=== PATIENT | male | born 1975 | race Caucasian/White ===

== ENCOUNTER 2016-11-03 18:38 | Emergency (ER) | payer SELFPAY ==
[2016-11-03] MEDS ORDERED: IBUPROFEN 800 MG TABLET PO ONE (19:58)
--- NOTE | 2016-11-03 19:58 | ER Document Report ---
ED Medical Screen (RME) - General Stated Complaint: SHOULDER PAIN Notes: left shoulder over the course of the week has a catching feeling. No h/o trauma. 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 A comprehensive ED assessment and evaluation of the patient, analysis of test results and completion of the medical decision making process will be conducted by additional ED providers.
--- NOTE | 2016-11-03 21:25 | ER Document Report ---
ED General - General Chief Complaint: Shoulder Pain Stated Complaint: SHOULDER PAIN Notes: This 41-year-old male who presents to the emergency room today stating that he has discomfort in his left shoulder and feels a clicking when he lifts it laterally as well as pain to the left posterior aspect of his neck which feels like a sharp stabbing pain occurs 10-15 times a day over the course of the last several months. TRAVEL OUTSIDE OF THE [place] IN LAST 30 DAYS: No - Related Data Allergies/Adverse Reactions: levofloxacin [From Levaquin] Allergy (Verified 11/03/16 19:59) Past Medical History - General Information source: Patient - Social History Smoking Status: Current Every Day Smoker Family History: None Patient has suicidal ideation: No Patient has homicidal ideation: No Renal/ Medical History: Denies: Hx Peritoneal Dialysis Review of Systems - Review of Systems Constitutional: No symptoms reported EENT: No symptoms reported Cardiovascular: No symptoms reported Respiratory: No symptoms reported Gastrointestinal: No symptoms reported Genitourinary: No symptoms reported Male Genitourinary: No symptoms reported Musculoskeletal: No symptoms reported Skin: No symptoms reported Hematologic/Lymphatic: No symptoms reported Neurological/Psychological: No symptoms reported Physical Exam - Vital signs Vitals: Temp Pulse Resp BP Pulse Ox 98.0 F 71 14 136/82 H 98 11/03/16 19:53 11/03/16 19:53 11/03/16 19:53 11/03/16 19:53 11/03/16 19:53 Interpretation: Normal - General General appearance: Appears well, Alert - HEENT Head: Normocephalic, Atraumatic Eyes: Normal Pupils: PERRL Neck: Normal, Other - Left lateral palpable spasm. No: Anterior cervical chain , Posterior cervical chain, Lymphadenopathy, Meningismus, Neck mass - Respiratory Respiratory status: No respiratory distress Chest status: Nontender Breath sounds: Normal Chest palpation: Normal - Cardiovascular Rhythm: Regular Heart sounds: Normal auscultation Murmur: No - Abdominal Inspection: Normal Distension: No distension Bowel sounds: Normal Tenderness: Nontender Organomegaly: No organomegaly - Back Back: Normal, Nontender - Extremities General upper extremity: Normal inspection, Nontender, Normal color, Normal ROM , Normal temperature General lower extremity: Normal inspection, Nontender, Normal color, Normal ROM , Normal temperature, Normal weight bearing. No: Baylee's sign - Neurological Neuro grossly intact: Yes Cognition: Normal Orientation: AAOx4 [place] Coma Scale Eye Opening: Spontaneous [place] Coma Scale Verbal: Oriented Kishore Coma Scale Motor: Obeys Commands Kishore Coma Scale Total: 15 Speech: Normal Motor strength normal: LUE, RUE, LLE, RLE Sensory: Normal - Psychological Associated symptoms: Normal affect, Normal mood - Skin Skin Temperature: Warm Skin Moisture: Dry Skin Color: Normal Course - Vital Signs Vital signs: Temp Pulse Resp BP Pulse Ox 98.0 F 71 14 136/82 H 98 11/03/16 19:53 11/03/16 19:53 11/03/16 19:53 11/03/16 19:53 11/03/16 19:53 - Diagnostic Test Radiology reviewed: Reports reviewed Discharge - Discharge Clinical Impression: Cervical radicular pain Shoulder pain, acute Qualifiers: Laterality: left Qualified Code(s): M25.512 - Pain in left shoulder Disposition: HOME, SELF-CARE Additional Instructions: Radiculopathy Radiculopathy is irritation of a nerve. Sometimes this is called "pinched nerve." The pain can be sharp and stabbing, constant and dull, or burning in nature. The pain can occur in any area of the chest, shoulders, or arms. Sometimes the pain is provoked by coughing or moving. Radiculopathy can be caused by physical pressure on a nerve, such as a herniated disc or swollen joint in the spine. It can also be caused by viral infections within the nerve or by nerve damage due to diabetes or blood vessel disease. Radicular pain is treated with antiinflammatory medicine. Injections may help resistant cases, if we can identify a single nerve that's causing the pain. Surgery is usually not necessary. If symptoms do not improve with time, you may need additional testing, such as an MRI or EMG (electromyogram). Return if there is local weakness or numbness, shortness of breath, increasing pain, or other new symptoms. Prescriptions: Methocarbamol [Robaxin 750 mg Tablet] 750 mg PO Q4 #40 tablet Naproxen Sodium [Naproxen Sodium ER] 500 mg PO Q12 PRN #20 tablet.sa PRN Reason: Naproxen Sodium [Naproxen Sodium ER] 500 mg PO Q12 PRN #20 tablet.sa PRN Reason:
[2016-11-03] MEDS ORDERED: METHOCARBAMOL 750 MG TABLET PO ONE (21:33)
[2016-11-03] MEDS ORDERED: METHYLPREDNISOLONE ACETATE INJ 40 MG/1 ML ML IM ONE (21:47)
[2016-11-03] MEDS ORDERED: DEXAMETHASONE SOD PHOS INJ 10 MG/1 ML VIAL IM ONE (21:47)
[2016-11-03 23:40] VITALS: BP 144/92
== END 2016-11-03 22:34 | disposition home or self-care (01) ==
LOC: ER 18:38
DX: M54.12 Radiculopathy, cervical region (principal); M25.512 Pain in left shoulder; M54.2 Cervicalgia; R25.2 Cramp and spasm; F17.200 Nicotine dependence, unspecified, uncomplicated; Z88.1 Allergy status to other antibiotic agents
CPT/HCPCS: 99284; 96372; 73030; 70450; J3490; J1020; J1100

== ENCOUNTER 2017-04-22 21:00 | Emergency (ER) | payer SELFPAY ==
[2017-04-23] MEDS ORDERED: ACETAMINOPHEN 325 MG TABLET PO ONE (00:11)
--- NOTE | 2017-04-23 00:36 | RADIOLOGY REPORT (SQ) ---
EXAM DESCRIPTION: FOOT RIGHT COMPLETE COMPLETED DATE/TIME: 04/23/2017 12:26 am REASON FOR STUDY: injury, pain COMPARISON: None. NUMBER OF VIEWS: Three views. TECHNIQUE: AP, lateral and oblique radiographic images acquired of the right foot. LIMITATIONS: None. FINDINGS: MINERALIZATION: Normal. BONES: No acute fracture or dislocation. No worrisome bone lesions. Minimal Achilles tendinous enth esophyte. JOINTS: No effusions. SOFT TISSUES: No soft tissue swelling. No foreign body. Known soft tissue injury. OTHER: No other significant finding. IMPRESSION: NO RADIOGRAPHIC EVIDENCE OF ACUTE INJURY. TECHNICAL DOCUMENTATION: JOB ID: [id number] [employer]- All Rights Reserved
[2017-04-23] MEDS ORDERED: KETOROLAC TROMETHAMINE 60 MG/2 ML SDV IM ONE (00:54)
[2017-04-23] MEDS ORDERED: OXYCODONE-ACETAMINOPHEN 5-325 MG TABLET PO ONE (00:54)
--- NOTE | 2017-04-23 00:57 | ER Document Report ---
ED Extremity Problem, Lower - General Information source: Patient TRAVEL OUTSIDE OF THE [place] IN LAST 30 DAYS: No - HPI Location: Foot - right Context: Other - stepped on a nail Recent injury: Yes Associated symptoms: Painful ambulation, Unable to bear weight Exacerbated by: Movement, Walking <ZARIA NUGENT - Last Filed: 04/23/17 02:25> <ALEXANDRA HELTON - Last Filed: 04/23/17 04:05> - General Chief Complaint: Foot Injury Stated Complaint: NAIL IN RIGHT FOOT Time Seen by Provider: 04/22/17 23:47 Notes: Patient is a 41 year old male who presents to the ED with complaints of right foot pain secondary to stepping on an old nail sticking out of a board at approximately 1630 yesterday. Patient states the nail went through his boot. Patient states he put mouthwash on it and pipe glue on it because his boot was "full of blood". Patient states he has limited ROM of his foot secondary to the pain. Patient cannot put pressure on his foot secondary to the pain. Patient had his last tetanus vaccination 7 years ago approximately and he does not have a history of diabetes. No other concerns or complaints at this time. (ZARIA NUGENT) - Related Data Allergies/Adverse Reactions: levofloxacin [From Levaquin] Allergy (Verified 04/23/17 01:12) Past Medical History - General Information source: Patient - Social History Smoking Status: Unknown if Ever Smoked Family History: None Patient has suicidal ideation: No Patient has homicidal ideation: No Endocrine Medical History: Denies: Hx Diabetes Mellitus Type 2 Renal/ Medical History: Denies: Hx Peritoneal Dialysis <ZARIA NUGENT - Last Filed: 04/23/17 02:25> Review of Systems - Review of Systems Constitutional: No symptoms reported EENT: No symptoms reported Cardiovascular: No symptoms reported Respiratory: No symptoms reported Gastrointestinal: No symptoms reported Genitourinary: No symptoms reported Male Genitourinary: No symptoms reported Musculoskeletal: See HPI, Other - right foot pain secondary to stepping on a nail Skin: No symptoms reported Hematologic/Lymphatic: No symptoms reported Neurological/Psychological: No symptoms reported <ZARIA NUGENT - Last Filed: 04/23/17 02:25> Physical Exam - General General appearance: Appears well, Alert In distress: None - HEENT Head: Normocephalic, Atraumatic Eyes: Normal Extraocular movements intact: Yes Pupils: PERRL - Respiratory Respiratory status: No respiratory distress - Cardiovascular Rhythm: Regular Pulses: Normal: Dorsalis pedis - Abdominal Inspection: Normal - Back Back: Normal - Extremities General upper extremity: Normal inspection, Normal ROM Foot: Tender - to palpation on ball of right foot and arch, Puncture wound - on ball of right foot, Other - pain with movement on toes but able to do so - Neurological Neuro grossly intact: Yes Cognition: Normal Orientation: AAOx4 Kish[place] Coma Scale Eye Opening: Spontaneous Kishore Coma Scale Verbal: Oriented [place] Coma Scale Motor: Obeys Commands [place] Coma Scale Total: 15 Speech: Normal - Psychological Associated symptoms: Normal affect, Normal mood - Skin Skin Temperature: Warm Skin Moisture: Dry Skin Color: Normal <ZARIA NUGENT - Last Filed: 04/23/17 02:25> Course <ZARIA NUGENT - Last Filed: 04/23/17 02:25> - Diagnostic Test Radiology reviewed: Reports reviewed <ALEXANDRA HELTON - Last Filed: 04/23/17 04:05> - Re-evaluation Re-evalutation: 04/23/17 04:01 Patient is a 41-year-old male who stepped on a nail that went to the bottom of his foot and through his boot. Patient is able to move his toes although it is painful. No evidence for fracture or foreign body on x-ray. Patient has allergy to Levaquin but it is diarrhea and headache. Patient was given ciprofloxacin here without any problem. Patient had wound cleaned, splinted. He will be discharged home with ciprofloxacin and pain medication. He is to follow-up with orthopedics this week. Return immediately if any increased pain , swelling, discharge, redness, or any other concerns. Isolated injury. Understands and agrees with plan. Given splint and crutches for comfort. ( ALEXANDRA HELTON) - Vital Signs Vital signs: Temp Pulse Resp BP Pulse Ox 98.0 F 53 L 16 129/81 H 98 04/23/17 02:54 04/23/17 02:54 04/23/17 02:54 04/23/17 02:54 04/23/17 02:54 Procedures - Immobilization Right Foot Pre-Proc Neuro Vasc Exam: Normal Immobilizer type: Short Leg Posterior Performed by: RN Post-Proc Neuro Vasc Exam: Normal Alignment checked and good: Yes <ALEXANDRA HELTON - Last Filed: 04/23/17 04:05> Discharge <ZARIA NUGENT - Last Filed: 04/23/17 02:25> <ALEXANDRA HELTON - Last Filed: 04/23/17 04:05> - Discharge Clinical Impression: Puncture wound Condition: Stable Disposition: HOME, SELF-CARE Instructions: Puncture Wound ([facility]) Prescriptions: Ciprofloxacin HCl [Cipro 500 mg Tablet] 500 mg PO BID #28 tablet Oxycodone HCl/Acetaminophen [Percocet 5-325 mg Tablet] 1 - 2 tab PO Q4H PRN #20 tablet PRN Reason: Forms: Return to Work Referrals: JONATHON CHAUHAN MD [ACTIVE STAFF] - Follow up tomorrow Scribe Attestation: 04/23/17 04:05 I personally performed the services described in the documentation, reviewed and edited the documentation which was dictated to the scribe in my presence, and it accurately records my words and actions. (ALEXANDRA HELTON) Scribe Documentation - Scribe Written by Jonah:: jonah Carranza, 04/23/2017, 0101 acting as scribe for :: Kristin <ZARIA NUGENT - Last Filed: 04/23/17 02:25>
[2017-04-23] MEDS ORDERED: CIPROFLOXACIN HCL 500 MG TABLET PO ONE (01:03)
[2017-04-23] MEDS ORDERED: DIPH/PERTUSS(ACELL)/TETANUS VAC/PF 0.5 ML SYR (>=10YO) IM ONE (01:33)
[2017-04-23] MEDS ORDERED: HYDROCODONE/ACETAMINOPHEN 5-325 MG 6 TAB/DSPK PO PRN (02:32)
[2017-04-23 02:55] VITALS: BP 129/81
== END 2017-04-23 03:10 | disposition home or self-care (01) ==
LOC: ER 21:00
PROC: 2W3QX1Z Immobilization of Right Lower Leg using Splint (ICD-10-PCS; principal; 2017-04-22)
DX: S91.331A Puncture wound without foreign body, right foot, initial encounter (principal); W22.09XA Striking against other stationary object, initial encounter; Z23 Encounter for immunization; E11.9 Type 2 diabetes mellitus without complications
CPT/HCPCS: 99283; 96372; 90471; 73630; 90715; 29515; J1885

== ENCOUNTER 2017-06-26 18:14 | Emergency (ER) | payer SELFPAY ==
[2017-06-26] MEDS ORDERED: NORMAL SALINE 1000 ML 1,000 ML IV ONE (18:23)
[2017-06-26] MEDS ORDERED: KETOROLAC TROMETHAMINE INJ/PF 30 MG/1 ML SDV IV ONE (18:23)
[2017-06-26] MEDS ORDERED: ONDANSETRON HCL INJ/PF 4 MG/2 ML SDV IV ONE (18:24)
--- NOTE | 2017-06-26 18:35 | ER Document Report ---
ED Medical Screen (RME) - General Chief Complaint: Abdominal Pain Stated Complaint: ABDOMEN PAIN Time Seen by Provider: 06/26/17 18:22 Mode of Arrival: Wheelchair Information source: Patient, Relative - Pt. with c/o L flank pain radiating to L inguinal area for the past 2 weeks ingtermittently. States pain got worse earlier today. TRAVEL OUTSIDE OF THE [place] IN LAST 30 DAYS: No - Related Data Allergies/Adverse Reactions: levofloxacin [From Levaquin] Allergy (Verified 06/26/17 18:18) Past Medical History Endocrine Medical History: Denies: Hx Diabetes Mellitus Type 2 Renal/ Medical History: Denies: Hx Peritoneal Dialysis Past Surgical History: Reports: Hx Genitourinary Surgery - urethral enlargement - Immunizations Hx Diphtheria, Pertussis, Tetanus Vaccination: No Physical Exam - Vital signs Vitals: Temp Pulse Resp BP Pulse Ox 98.7 F 87 20 137/89 H 95 06/26/17 18:18 06/26/17 18:18 06/26/17 18:18 06/26/17 18:18 06/26/17 18:18 Course - Vital Signs Vital signs: Temp Pulse Resp BP Pulse Ox 98.7 F 87 20 137/89 H 95 06/26/17 18:18 06/26/17 18:18 06/26/17 18:18 06/26/17 18:18 06/26/17 18:18
[2017-06-26 19:04] LABS: APPEARANCE,URINE CLEAR; BILIRUBIN,URINE NEGATIVE (NEGATIVE); GLUCOSE, URINE NEGATIVE (NEGATIVE); KETONES,URINE NEGATIVE (NEGATIVE); LEUKOCYTE ESTERASE,URINE NEGATIVE (NEGATIVE); NITRITE,URINE NEGATIVE (NEGATIVE); PROTEIN,URINE NEGATIVE (NEGATIVE); URINE SPECIFIC GRAVITY 1.021; UROBILINOGEN,URINE NEGATIVE mg/dL (<2.0)
--- NOTE | 2017-06-26 19:29 | RADIOLOGY REPORT (SQ) ---
EXAM DESCRIPTION: CT LTD RENAL STONE PROTOCOL ON COMPLETED DATE/TIME: 06/26/2017 7:07 pm REASON FOR STUDY: L flank pain COMPARISON: None. TECHNIQUE: CT scan of the abdomen and pelvis performed without intravenous or oral contrast. Images reviewed with lung, soft tissue, and bone windows. Reconstructed coronal and sagittal MPR images revi ewed. All images stored on PACS. All CT scanners at this facility use dose modulation, iterative reconstruction, and/or weight based d osing when appropriate to reduce radiation dose to as low as reasonably achievable (ALARA). [facility]: Dose Right [facility]: CareDose [facility]: Dose Right [facility]: Teradose 4D [facility]: [employer] Technologies RADIATION DOSE: Up-to-date CT equipment and radiation dose reduction techniques were employed. CTDIv ol: 17.9 mGy. DLP: 986 mGy-cm.mGy. LIMITATIONS: None. FINDINGS: LOWER CHEST: No significant findings. No nodules or infiltrates. NON-CONTRASTED LIVER, SPLEEN, ADRENALS: Evaluation limited by lack of IV contrast. No identified sign ificant masses. PANCREAS: No masses. No peripancreatic inflammatory changes. GALLBLADDER: No identified stones by CT criteria. No inflammatory changes to suggest cholecystitis. RIGHT KIDNEY AND URETER: No suspicious masses. Assessment limited by lack of IV contrast. No signif icant calcifications. No hydronephrosis or hydroureter. LEFT KIDNEY AND URETER: No suspicious masses. Assessment limited by lack of IV contrast. No signifi cant calcifications. No hydronephrosis or hydroureter. AORTA AND RETROPERITONEUM: No aneurysm. No retroperitoneal masses or adenopathy. BOWEL AND PERITONEAL CAVITY: No obvious masses or inflammatory changes. No free fluid. APPENDIX: Normal. PELVIS, BLADDER, AND ABDOMINAL WALL:3.5 cm fat containing left inguinal hernia. No free fluid. Bladde r normal. BONES: No acute findings. 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 OTHER: No other significant finding. IMPRESSION: NO ACUTE PROCESS IN THE ABDOMEN OR PELVIS. COMMENT: Quality ID # [id number]: Final reports with documentation of one or more dose reduction techniques (e.g., Automated exposure control, adjustment of the mA and/or kV according to patient size, use of iterative reconstruction technique) TECHNICAL DOCUMENTATION: JOB ID: [id number]- All Rights Reserved
[2017-06-26] MEDS ORDERED: HYDROMORPHONE HCL INJ/PF 2 MG/ML AMPULE IV ONE (19:53)
--- NOTE | 2017-06-26 20:11 | ER Document Report ---
ED GI/ - General Chief Complaint: Abdominal Pain Stated Complaint: ABDOMEN PAIN Time Seen by Provider: 06/26/17 18:22 Mode of Arrival: Wheelchair Notes: The patient is a 41-year-old male who presents with 2 weeks of intermittent left flank burning sensation with radiation into his left testicle. 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 He denies nausea, vomiting , fevers, hematuria, dysuria, chest pain, shortness of breath, saddle anesthesia , difficulty walking or rash. TRAVEL OUTSIDE OF THE [place] IN LAST 30 DAYS: No - Related Data Allergies/Adverse Reactions: levofloxacin [From Levaquin] Allergy (Verified 06/26/17 18:18) Past Medical History - General Information source: Patient, Relative - Pt. with c/o L flank pain radiating to L inguinal area for the past 2 weeks ingtermittently. States pain got worse earlier today. - Social History Smoking Status: Current Every Day Smoker Family History: None Endocrine Medical History: Denies: Hx Diabetes Mellitus Type 2 Renal/ Medical History: Denies: Hx Peritoneal Dialysis Past Surgical History: Reports: Hx Genitourinary Surgery - urethral enlargement - Immunizations Hx Diphtheria, Pertussis, Tetanus Vaccination: No Review of Systems - Review of Systems Notes: REVIEW OF SYSTEMS: CONSTITUTIONAL: -fevers, -chills EENT: -eye pain, -difficulty swallowing, -nasal congestion CARDIOVASCULAR:-chest pain, -syncope. RESPIRATORY: -cough, -SOB GASTROINTESTINAL: +LLQ abdominal pain, - nausea, -vomiting, -diarrhea GENITOURINARY: -dysuria, -hematuria, +testicular pain MUSCULOSKELETAL: +left flank pain, -neck pain SKIN: -rash or skin lesions. HEMATOLOGIC: -easy bruising or bleeding. LYMPHATIC: -swollen, enlarged glands. NEUROLOGICAL: -altered mental status or loss of consciousness, -headache, - neurologic symptoms PSYCHIATRIC: -anxiety, -depression. ALL OTHER SYSTEMS REVIEWED AND NEGATIVE. Physical Exam - Vital signs Vitals: Temp Pulse Resp BP Pulse Ox 98.7 F 87 20 137/89 H 95 06/26/17 18:18 06/26/17 18:18 06/26/17 18:18 06/26/17 18:18 06/26/17 18:18 - Notes Notes: PHYSICAL EXAMINATION: GENERAL: Well-appearing, well-nourished and in no acute distress. HEAD: Atraumatic, normocephalic. EYES: Pupils equal round and reactive to light, extraocular movements intact, sclera anicteric, conjunctiva are normal. ENT: nares patent, oropharynx clear without exudates. Moist mucous membranes. NECK: Normal range of motion, supple without lymphadenopathy LUNGS: Breath sounds clear to auscultation bilaterally and equal. No wheezes rales or rhonchi. HEART: Regular rate and rhythm without murmurs ABDOMEN: Soft, nontender, normoactive bowel sounds. No guarding, no rebound. No masses appreciated. : Reducible left inguinal hernia. Normal lie of testicles. Left testicular tenderness. No epididymal tenderness. EXTREMITIES: Normal range of motion, no pitting or edema. No cyanosis. NEUROLOGICAL: Cranial nerves grossly intact. Normal speech, normal gait. Normal sensory and motor exams. PSYCH: Normal mood, normal affect. SKIN: Warm, Dry, normal turgor, no rashes or lesions noted. Course - Re-evaluation Re-evalutation: Patient with reducible left inguinal hernia. CT and urine do not show any evidence of kidney stones or hematuria. Instructed patient about hernia management and treatment. Given strict return precautions. He will follow-up with the surgeon on Thursday. - Vital Signs Vital signs: Temp Pulse Resp BP Pulse Ox 98.7 F 87 20 137/89 H 95 06/26/17 18:18 06/26/17 18:18 06/26/17 18:18 06/26/17 18:18 06/26/17 18:18 - Diagnostic Test Radiology reviewed: Image reviewed, Reports reviewed Radiology results interpreted by me: CT A/P: NAD Scrotal US: fat-containing inguinal hernia Discharge - Discharge Clinical Impression: Inguinal hernia, left Condition: Stable Disposition: HOME, SELF-CARE Additional Instructions: Hernia You have a hernia. A hernia forms at a weak spot in the abdominal wall. Bowel slips out of the abdominal cavity into the weak spot. Hernias tend to occur in the groin (especially in males), the fold of the thigh, the naval, or at a surgical scar. Surgical repair of the defect is usually necessary. The problem tends to get worse. It's important that you follow up as recommended. For now, you should avoid straining, heavy lifting, and vigorous exercise. Complications occur if the hernia becomes tightly stuck. You should come back immediately if the area becomes increasingly painful, swollen, or discolored, or if you develop abdominal pain and vomiting. Prescriptions: Hydrocodone/Acetaminophen [[place] 5-325 mg Tablet] 1 tab PO Q6H PRN #12 tablet PRN Reason: Ondansetron [Zofran Odt 4 mg Tablet] 1 - 2 tab PO Q4H PRN #15 tab.rapdis PRN Reason: For Nausea/Vomiting Referrals: DAMIAN JOAQUIN MD [ACTIVE STAFF] - Follow up as needed
--- NOTE | 2017-06-26 21:52 | RADIOLOGY REPORT (SQ) ---
EXAM DESCRIPTION: U/S SCROTUM W/DOPPLER COMPLETED DATE/TIME: 06/26/2017 9:24 pm REASON FOR STUDY: left testicular pain COMPARISON: None. TECHNIQUE: Static and realtime rodrigues scale imaging of the scrotum and testes. Selected color Doppler and spectral images recorded to document blood flow. LIMITATIONS: None. FINDINGS: RIGHT: TESTICLE: Normal size. Normal echotexture. Normal blood flow. No mass. EPIDIDYMIS: 4 mm epididymal head cyst. HYDROCELE OR VARICOCELE: Small hydrocele. HERNIA OR EXTRA-TESTICULAR MASS: No. OTHER: No other significant finding. LEFT: TESTICLE: Normal size. Normal echotexture. Normal blood flow. No mass. EPIDIDYMIS: Normal. HYDROCELE OR VARICOCELE: Small hydrocele. HERNIA OR EXTRA-TESTICULAR MASS: Fat containing left inguinal hernia. OTHER: No other significant finding. IMPRESSION: Fat containing left inguinal hernia.. NO EVIDENCE OF TESTICULAR MASS OR TORSION. TECHNICAL DOCUMENTATION: JOB ID: [id number] [employer]- All Rights Reserved
[2017-06-26 22:42] VITALS: BP 171/111
== END 2017-06-26 22:42 | disposition home or self-care (01) ==
LOC: ER 18:14
DX: K40.90 Unilateral inguinal hernia, without obstruction or gangrene, not specified as recurrent (principal); F17.200 Nicotine dependence, unspecified, uncomplicated; Z88.1 Allergy status to other antibiotic agents
CPT/HCPCS: 99284; 96361; 96374; 96375; 81001; 76870; 93976; 76380; J1885; J1170; J2405; J7030

== ENCOUNTER 2018-06-24 00:05 | Emergency (ER) | payer SELFPAY ==
[2018-06-24] MEDS ORDERED: METOCLOPRAMIDE HCL INJ/PF 10 MG/2 ML SDV IV ONE (02:01)
[2018-06-24] MEDS ORDERED: DIPHENHYDRAMINE HCL 50 MG/ML VIAL IV ONE (02:01)
[2018-06-24] MEDS ORDERED: NORMAL SALINE 1000 ML 1,000 ML IV ONE (02:02)
[2018-06-24 02:10] LABS: ABSOLUTE BASOPHILS # (AUTO) 0.1 10^3/uL (0.0-0.2); ABSOLUTE EOSINOPHILS # (AUTO) 0.1 10^3/uL (0.0-0.6); ABSOLUTE LYMPHOCYTES (AUTO) 1.2 10^3/uL (0.5-4.7); ABSOLUTE MONOCYTES (AUTO) 0.9 10^3/uL (0.1-1.4); ABSOLUTE NEUT (AUTO) 12.9 10^3/uL (1.7-8.2); BASOPHILS % (AUTO) 0.4 % (0-2); EOSINOPHILS % (AUTO) 0.9 % (0-6); HEMOGLOBIN 16.4 g/dL (13.5-17.0); LYMPHOCYTES % (AUTO) 7.7 % (13-45); MEAN CORPUSCULAR HEMOGLOBIN 32.4 pg (27.0-33.4); MEAN CORPUSCULAR HGB CONC 35.6 g/dL (32.0-36.0); MEAN CORPUSCULAR VOLUME 91 fl (80-97); MONOCYTES % (AUTO) 5.7 % (3-13); PLATELET COUNT 214 10^3/uL (150-450); RED BLOOD COUNT 5.05 10^6/uL (4.35-5.55); SEGMENTED NEUTROPHILS % (AUTO) 85.3 % (42-78); TOTAL CELLS COUNTED % (AUTO) 100 %; WHITE BLOOD COUNT 15.1 10^3/uL (4.0-10.5)
[2018-06-24 02:25] LABS: ALANINE AMINOTRANSFERASE 46 U/L (21-72); ALBUMIN 4.8 g/dL (3.5-5.0); ALKALINE PHOSPHATASE 71 U/L (38-126); ANION GAP 14 (5-19); ASPARTATE AMINO TRANSFERASE 45 U/L (17-59); BILIRUBIN,DIRECT 0.4 mg/dL (0.0-0.4); BILIRUBIN,TOTAL 0.7 mg/dL (0.2-1.3); BLOOD UREA NITROGEN 20 mg/dL (7-20); CALCIUM 9.6 mg/dL (8.4-10.2); CARBON DIOXIDE 23 mmol/L (22-30); CHLORIDE 104 mmol/L (98-107); GLUCOSE 120 mg/dL (75-110); LIPASE 391.8 U/L (23-300); POTASSIUM 4.5 mmol/L (3.6-5.0); TOTAL PROTEIN 8.7 g/dL (6.3-8.2)
[2018-06-24 02:33] LABS: APPEARANCE,URINE SLIGHTLY-CLOUDY; BILIRUBIN,URINE NEGATIVE (NEGATIVE); COLOR,URINE AMBER; GLUCOSE, URINE NEGATIVE (NEGATIVE); KETONES,URINE NEGATIVE (NEGATIVE); LEUKOCYTE ESTERASE,URINE NEGATIVE (NEGATIVE); NITRITE,URINE NEGATIVE (NEGATIVE); PROTEIN,URINE 30 mg/dL (NEGATIVE); URINE SPECIFIC GRAVITY 1.026
--- NOTE | 2018-06-24 03:21 | ER Document Report ---
ED General - General Chief Complaint: Abdominal Pain Stated Complaint: UPPER ABDOMINAL PAIN Time Seen by Provider: 06/24/18 01:48 Mode of Arrival: Ambulatory Information source: Patient Notes: This is a 42-year-old man who presents to the emergency room with left upper quadrant pain, nausea, vomiting and diarrhea for several episodes. Patient states she has had intermittent left upper quadrant pain for the past month. He denies any chest pain. Patient denies any blood in the stool. He states that he developed symptoms coming on acutely at 8:30 PM. TRAVEL OUTSIDE OF THE [place] IN LAST 30 DAYS: No - Related Data Allergies/Adverse Reactions: levofloxacin [From Levaquin] Allergy (Verified 06/24/18 00:09) Past Medical History - Social History Smoking Status: Current Every Day Smoker Frequency of alcohol use: Heavy Drug Abuse: Marijuana Family History: None Patient has suicidal ideation: No Patient has homicidal ideation: No Endocrine Medical History: Denies: Hx Diabetes Mellitus Type 2 Renal/ Medical History: Denies: Hx Peritoneal Dialysis Past Surgical History: Reports: Hx Genitourinary Surgery - urethral enlargement - Immunizations Hx Diphtheria, Pertussis, Tetanus Vaccination: Yes Physical Exam - Vital signs Vitals: Temp Pulse Resp BP Pulse Ox 97.3 F 81 16 138/94 H 99 06/24/18 00:13 06/24/18 00:13 06/24/18 00:13 06/24/18 00:13 06/24/18 00:13 Course - Vital Signs Vital signs: Temp Pulse Resp BP Pulse Ox 97.3 F 81 16 138/94 H 99 06/24/18 00:13 06/24/18 00:13 06/24/18 00:13 06/24/18 00:13 06/24/18 00:13 - Laboratory Result Diagrams: 06/24/18 02:03 06/24/18 02:03 Laboratory results interpreted by me: 06/24/18 06/24/18 06/24/18 02:03 02:03 02:16 WBC 15.1 H Seg Neutrophils % 85.3 H Lymphocytes % 7.7 L Absolute Neutrophils 12.9 H Glucose 120 H Total Protein 8.7 H Lipase 391.8 H Urine Protein 30 H Urine Urobilinogen 2.0 H Discharge - Discharge Clinical Impression: Gastroenteritis Condition: Stable Disposition: HOME, SELF-CARE Instructions: Abdominal Pain ([facility]) Additional Instructions: Rest, drink plenty of fluids. Take the nausea medicine and pain medicine as needed. You could take the antibiotics if the pain is not improving after 2 days. Return to the emergency room for worsening pain, fever or any concerns or getting worse. [facility]up [facility] Prescriptions: Hydrocodone/Acetaminophen [[place] 5-325 mg Tablet] 1 tab PO Q6HP PRN #10 tablet PRN Reason: Metronidazole 500 mg PO Q6HP PRN #20 tablet PRN Reason: Promethazine HCl [Phenergan 25 mg Tablet] 25 mg PO Q6H PRN #15 tablet PRN Reason:
--- NOTE | 2018-06-24 03:24 | RADIOLOGY REPORT (SQ) ---
EXAM DESCRIPTION: CT ABDOMEN PELVIS WITH IV CONTRAST COMPLETED DATE/TME: 06/24/2018 02:30 CLINICAL HISTORY: Diffuse abdominal pain COMPARISON: 06/26/2017 TECHNIQUE: CT of the abdomen and pelvis performed following IV administration of 100 mL of Omnipaque 350. Delayed imaging obtained. DLP: 2363.8 mGycm FINDINGS: Lung Bases: The visualized lung bases are clear. Bones: No destructive bone lesions identified. Degenerative change of the spine. 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 Abdomen: Liver: The liver has normal size and density. No intrahepatic mass or biliary dilatation. Gallbladder: No calcified gallstones. Spleen, Pancreas, and Adrenal Glands: The spleen, pancreas, and adrenal glands are unremarkable. Kidneys: The kidneys have normal size and contour without evidence of solid mass or hydronephrosis. Vasculature: Aortoiliac atherosclerosis. IVC is unremarkable. The portal vein is patent. The proximal visceral and renal arteries are patent. Stomach: The stomach and duodenum have normal course. Other: No free intraperitoneal air. No free fluid or lymphadenopathy. Pelvis: Bladder: Urinary bladder is unremarkable. Bowel: No dilated loops of large or small bowel. Appendix: Normal appendix. Pelvis: Fat-containing left inguinal hernia. Prostate is not enlarged. IMPRESSION: 1. No acute inflammatory or obstructive process identified. This exam was performed according to our departmental dose-optimization program, which includes automated exposure control, adjustment of the mA and/or kV according to patient size and/or use of iterative reconstruction technique.
[2018-06-24] MEDS ORDERED: HYDROCODONE/ACETAMINOPHEN 5-325 MG (6 TAB/ER DISP) PO PRN (03:45)
[2018-06-24] MEDS ORDERED: ONDANSETRON ODT 4 MG TAB (6 TAB/ER DISP) PO PRN (03:45)
[2018-06-24 08:29] VITALS: BP 135/86
== END 2018-06-24 04:04 | disposition home or self-care (01) ==
LOC: ER 00:05
DX: K52.9 Noninfective gastroenteritis and colitis, unspecified (principal); R10.12 Left upper quadrant pain; R11.2 Nausea with vomiting, unspecified; F17.200 Nicotine dependence, unspecified, uncomplicated; Z88.1 Allergy status to other antibiotic agents
CPT/HCPCS: 99284; 96361; 96374; 96375; 36415; 83690; 85025; 80053; 81001; 84484; 74177; J1200; J2765; J7030